=== PATIENT | male | born 2005 | race Caucasian/White ===

== ENCOUNTER → 2024-07-19 | Outpatient (CLI) | payer BC, SELFPAY ==
--- NOTE | 2024-07-19 15:15 | XR_ITS ---
EXAMINATION: Ankle, left 3 views . Technique: Ankle AP, oblique, lateral 3 views Date and time of exam: July 19, 2024 at 1540 hrs. Indications: Left ankle pain 2 weeks. Findings: No fracture or dislocation No arthritic change Impression: No fracture or dislocation
--- NOTE | 2024-07-19 15:15 | XR_ITS ---
Examination: Foot, left, 3 views Technique: AP, oblique, lateral views foot, 3 views Date and time of exam: July 19, 2024 1540 hrs. Indications: Left foot pain beginning 2 months ago. Findings: Normal bone density. No fracture or dislocation. No erosive or other significant arthritic change Impression: No erosive or other significant arthritic change
== END | disposition home or self-care (01) ==
PROVIDERS: PCP Physician Assistant Medical; Referring Provider Physician Assistant Medical; Visit Provider Physician Assistant Medical
DX: M25.572 Pain in left ankle and joints of left foot (principal)
CPT/HCPCS: 73610; 73630